=== PATIENT | male | born 1940 | race Caucasian/White ===

== ENCOUNTER 2021-01-03 11:37 | Outpatient (CLI) | payer MEDICARE, OTHER | END 2021-01-03 11:38 | disposition home or self-care (01) | LOC: BICRAD 11:37 | PROVIDERS: ATTEND Anesthesiology Pain Medicine | DX: M47.816 Spondylosis without myelopathy or radiculopathy, lumbar region (principal); M48.061 Spinal stenosis, lumbar region without neurogenic claudication | CPT/HCPCS: 72120 ==